=== PATIENT | female | born 1995 | race African-American/Black ===

== ENCOUNTER 2016-05-06 14:58 | Emergency (ER) | payer MEDICAID, MEDICARE ==
[~2016-05-06] VITALS: Ht 162.6 cm; Wt 49.9 kg
[2016-05-06 15:27] VITALS: BP 129/84
== END 2016-05-06 15:44 | disposition home or self-care (01) ==
LOC: ER 14:58
DX: B00.9 Herpesviral infection, unspecified (principal)

== ENCOUNTER 2025-01-12 20:54 | Inpatient (IN) | payer MEDICARE, MEDICAID ==
[~2025-01-12] VITALS: Ht 160 cm; Wt 53.9 kg
--- NOTE | 2025-01-12 21:33 | ED.PDOC ---
GI ASSESSMENT HPI Comments HPI: 29-year-old female brought in by ambulance with a chief complaint of abdominal pain. EMS report on the patient having had one glass of wine at 3:00 p.m. earlier today. PATIENT BEGAN TO DEVELOP EPIGASTRIC ABDOMINAL PAIN . It does also have nausea and vomiting. Patient notes on the pain being similar to her previous episodes of pancreatitis. Patient had some associated nausea and vomiting nonbilious nonbloody. Pain is constant. No alleviating or precipitating factors. Denies any other symptoms at this time. Denies chills, fever, /D, SOB, CP. No other associated symptoms, modifiers, recent injuries or sick contacts present at this time. Denies Vitals on scene Respiratory rate: 17 SpO2: 90% room air Heart rate: 94 Blood pressure: 181/114 Past Medical History: Pancreatitis, herpes simplex type 1 Past Surgical History: Denies any Social History: Denies any HPI: Poor Historian. RODRIGUEZ; PANCREATITIS EPIGASTRIC PAIN, NAUSEA AND VOMITING. RECEIVED fentanyl IM AND ZOFRAN P.O. IN ROUTE. SYMPTOMS ARE RECURRENT. Past Medical History: Past Surgical History: REVIEW OF SYSTEMS: CONSTITUTIONAL: Denies acute: fever, diaphoresis, chills, generalized weakness. HEAD: Denies acute: headache, photophobia Eyes: Denies acute: Double vision, vision loss, eye pain, eye discharge. EARS: Denies acute: tinnitus, hearing loss, ear discharge, ear pain, THROAT: Denies acute: sore throat, swelling, difficulty swallowing , pain with swallowing, change in voice. NECK: Denies acute: neck pain, neck swelling, stiff neck. HEART: Denies acute : chest pain, palpitations, LUNGS: Denies acute: SOB, wheezing, cough, hemoptysis ABDOMEN: Denies acute: diarrhea, melena , hematemesis, hematochezia SKIN: Denies acute: rash, redness, lesions, itchiness. EXTREMITIES: Denies acute: calf pain, numbness, tingling, weakness, denies pain in extremity. Denies acute: Low back pain. Neuro: Denies acute: focal neurological deficit, motor or sensory focal neurological deficit, tremors, seizure like activity, confusion, dizziness, change in mental status, loss of bowel or bladder function, cauda equina like symptoms. : Denies acute: dysuria, hematuria, flank pain, increase in urinary frequency. PSYCH: Denies acute: hallucination, suicidal ideation, homicidal ideation. FEMALE: Denies acute: abnormal vaginal bleeding, foul odor, unusual discharge. PHYSICAL EXAM: General: ----moderate----acute distress, awake and alert. Head: normocephalic, atraumatic. No raccoon's eyes, no posadas sign. Neck: supple, trachea is midline, no swelling. Throat: Normal phonation. Eyes:, no erythema, no purulent discharge, no proptosis, no icterus. Heart: regular rate, regular rhythm, no significant murmur appreciated. Lungs: no apparent respiratory distress, Able to speak in full sentences. No wheezing, no rhonchi, no crackles. No stridors Clear to auscultation bilaterally. Abdomen: Epigastric tender to palpation, non distended, soft, no guarding, no rebound, + bowel sounds. Neuro: Awake, Alert, oriented to name, self, situation, follows commands GCS=15. Speech is normal. Skin: no petechia, no purpura, no cyanosis, non-pale, not jaundice. Lower extremities: --no - Pitting edema no deformity, no focal swelling, no calf TTP. Makes eye contact. moves all four extremities. Face: no apparent facial droop. ED COURSE: DISCLAIMER: This medical document was created using an electronic medical record system with voice recognition software and computerized dictation system. Although this document has been carefully reviewed, there might still be some phonetic and typographical errors. Occasional wrong-word or "sound-alike" substitutions may have occurred due to the inherent limitations of voice recognition software. These areas are purely typographical due to imperfections of the software programs and do not reflect any compromise in the patient's medical care. Please read the chart carefully and recognize, using context, where these substitutions have occurred. Time Seen by MD: 21:00 Primary Care Provider: NONE Reviewed Notes: Nurses Notes, Medications, Allergies Allergies: Coded Allergies: Tramadol (Verified Allergy, Unknown, 01/12/25) Information Source: Patient Mode of Arrival: Ambulatory Timing: Hours Duration: Since onset, Hours Was a procedure done? Was a procedure done?: No GI differential Dx Differential Diagnosis: Other (DDX include Diverticulitis, colitis, gastroenteritis, acute abdomen, SBO, enteritis, constipation, volvulus, appendicitis, Gallbladder disease, choledocolithiasis, ascending cholangitis, pancreatitis, intraAbdominal mass/neoplasm, hepatitis, UTI, pylonephritis, kidney stone, aneurysm, dissection, Inflammatory bowel disease, gastroparesis, ischemic bowel,,,,,,Food poisoning, bacterial/parasitic/viral etiology, trauma, diabetes DKA,ovarian torsion, ovarian cyst/mass, tubo-ovarian abscess, , ectopic , PID, STD.) X-Ray, Labs, Meds, VS Vital Signs Date Time Temp Pulse Resp B/P (MAP) Pulse Ox O2 Delivery O2 Flow Rate FiO2 01/13/25 03:12 98.5 88 20 153/103 (120) 100 98.5 01/13/25 01:02 98.5 92 20 156/98 (117) 96 98.5 01/12/25 21:00 98.1 72 17 177/104 99 98.1 Lab Test 01/13/25 00:09 01/12/25 23:10 01/12/25 21:21 Range/Units Urine Color Light-yellow Yellow Urine Clarity Clear Clear Urine pH 7.0 5.0-9.0 Urine Specific [place] 1.023 1.001-1.035 Urine Protein Trace H Negative Urine Ketones 1+ H Negative Urine Blood 3+ H Negative /uL Urine Nitrite Negative Negative Urine Bilirubin Negative Negative Urine Urobilinogen Normal Negative mg/dL Urine Leukocyte Esterase Negative Negative /uL Urine RBC 2 0 - 4 /hpf Urine Microscopic WBC 1 0-5 /HPF Urine Squamous Epithelial Cells Few <5 /hpf Urine Bacteria None seen None Seen /hpf Urine Mucus Few None Seen Urine Glucose Normal Normal mg/dL Urine Test Negative Negative Urine Opiates Screen Pos NEGATIVE Urine Fentanyl Screen Pos NEGATIVE Urine Barbiturates Screen Neg NEGATIVE Urine Phencyclidine Screen Neg NEGATIVE Urine Amphetamines Screen Neg NEGATIVE Urine Benzodiazepines Screen Neg NEGATIVE Urine Cocaine Screen Neg NEGATIVE Urine Cannabinoids Screen Pos NEGATIVE Lactic Acid Level 2.5 *H 2.8 *H 0.4-2.0 mmol/L White Blood Count 5.8 4.4-10.8 10^3/uL Red Blood Count 4.88 4.0-5.20 10^6/uL Hemoglobin 13.2 12.2-16.2 g/dL Hematocrit 40.3 36.0-46.0 % Mean Corpuscular Volume 82.5 80.0-100.0 fL Mean Corpuscular Hemoglobin 27.1 L 28.0-32.0 pg Mean Corpuscular Hemoglobin Concent 32.8 32.0-36.0 g/dL Red Cell Distribution Width 12.7 11.8-14.3 % Platelet Count 226 140-450 10^3/uL Mean Platelet Volume 8.3 6.9-10.8 fL Neutrophils (%) (Auto) 74.9 37.0-80.0 % Lymphocytes (%) (Auto) 21.9 10.0-50.0 % Monocytes (%) (Auto) 2.5 0.0-12.0 % Eosinophils (%) (Auto) 0.1 0.0-7.0 % Basophils (%) (Auto) 0.6 0.0-2.0 % Neutrophils # (Auto) 4.4 1.6-8.6 10 ^3/uL Lymphocytes # (Auto) 1.3 0.4-5.4 10 ^3/uL Monocytes # (Auto) 0.1 0-1.3 10 ^3/uL Eosinophils # (Auto) 0 0-0.8 10 ^3/uL Basophils # (Auto) 0 0-0.2 10 ^3/uL Nucleated Red Blood Cells 0.1 % Sodium Level 143 136-145 mmol/L Potassium Level 3.7 3.5-5.1 mmol/L Chloride Level 108 H 98-107 mmol/L Carbon Dioxide Level 24 20-31 mmol/L Anion Gap 11 5-15 Blood Urea Nitrogen 6 L 9-23 mg/dL Creatinine 0.68 0.550-1.02 mg/dL Glomerular Filtration Rate Calc 120 >90 mL/min BUN/Creatinine Ratio 8.8 L 10.0-20.0 Serum Glucose 103 74-106 mg/dL Calcium Level 8.9 8.7-10.4 mg/dL Total Bilirubin 0.3 0.2-1.0 mg/dL Aspartate Amino Transferase (AST) 18 13-40 U/L Alanine Aminotransferase (ALT) 9 7-40 U/L Alkaline Phosphatase 41 L 46-116 U/L Total Protein 7.2 5.7-8.2 g/dL Albumin 4.5 3.2-4.8 g/dL Lipase 29 12-53 U/L Current Medications Medications (Trade) Dose Ordered Sig/Mary Route Start Time Stop Time Status Last Admin Sodium Chloride 1,000 ml @ 1,000 mls/hr Q1H ONCE IV 01/12/25 21:15 01/12/25 22:14 DC 01/13/25 01:26 Ondansetron HCl (Zofran) 8 mg ONCE ONCE IV 01/12/25 21:15 01/12/25 21:16 DC 01/13/25 01:36 Sucralfate (Carafate Tab) 1 gm ONCE ONCE PO 01/12/25 21:15 01/12/25 21:16 DC 01/13/25 01:36 Pantoprazole Sodium (Protonix Tablet) 40 mg ONCE ONCE PO 01/12/25 21:15 01/12/25 21:16 DC 01/13/25 01:36 Lidocaine HCl (Xylocaine 2% Viscous) 10 ml ONCE ONCE PO 01/12/25 21:15 01/12/25 21:16 DC 01/13/25 01:37 Acetaminophen/ Hydrocodone Bitart ([place] 5/325MG Tab) 1 tab ONCE ONCE PO 01/13/25 02:45 01/13/25 02:46 DC 01/13/25 02:56 Time of 1ST Reevaluation: 21:30 Reevaluation 1ST: Unchanged Time of 2ND Reevaluation: 00:58 (Urinalysis drug screen results are still pending have not been released. None of the medicines have been given yet.) Time of 3RD Reevaluation: 03:54 (Patient is still pending CT scan of the abdomen and pelvis and reassessment after medications are given. The care of this patient was signed out to my colleague Dr. Kimble. ) Patient Education/Counseling: Diagnosis, Treatment Family Education/Counseling: No Family Present Assigned to Dr. KIMBLE Comments MDM: patient presented with the above HPI.-abdominal pain epigastric pain recurrent-----workup was initiated. patient was found with the above mentioned diagnosis. the following medications were ordered: please refer to order lists of meds and tests obtained by myself Dr. Hendrickson. Patient ED course and VS have been stabilized. Patient has been reassessed in the ED and remained in a stable condition. Escalation of care considered: Consideration of escalation to observation or admission Care of this patient was signed out to my colleague to follow up on CT scan of the abdomen and pelvis and reassessed the patient and make the appropriate disposition Dr. Kimble. SEPSIS Sepsis Screen Physician Orders [place] (01/12/25 ) Electrocardigram (01/12/25 21:14) Ct Ab Pel Wo Con-No Oral Or Iv (01/13/25 03:37) Vital Signs Date Time Temp Pulse Resp B/P (MAP) Pulse Ox O2 Delivery O2 Flow Rate FiO2 01/13/25 03:12 98.5 88 20 153/103 (120) 100 98.5 01/13/25 01:02 98.5 92 20 156/98 (117) 96 98.5 01/12/25 21:00 98.1 72 17 177/104 99 98.1 Laboratory Tests Test 01/12/25 21:21 01/12/25 23:10 Lactic Acid Level 2.8 mmol/L (0.4-2.0) *H 2.5 mmol/L (0.4-2.0) *H White Blood Count 5.8 10^3/uL (4.4-10.8) Medications Medications Dose Ordered Sig/Mary Route Start Time Stop Time Status Last Admin Dose Admin Acetaminophen/ Hydrocodone Bitart 1 tab ONCE ONCE PO 01/13/25 02:45 01/13/25 02:46 DC 01/13/25 02:56 Lidocaine HCl 10 ml ONCE ONCE PO 01/12/25 21:15 01/12/25 21:16 DC 01/13/25 01:37 Ondansetron HCl 8 mg ONCE ONCE IV 01/12/25 21:15 01/12/25 21:16 DC 01/13/25 01:36 Pantoprazole Sodium 40 mg ONCE ONCE PO 01/12/25 21:15 01/12/25 21:16 DC 01/13/25 01:36 Sodium Chloride 1,000 ml @ 1,000 mls/hr Q1H ONCE IV 01/12/25 21:15 01/12/25 22:14 DC 01/13/25 01:26 Sucralfate 1 gm ONCE ONCE PO 01/12/25 21:15 01/12/25 21:16 DC 01/13/25 01:36 Departure 1 Departure Time of Disposition: 01:02 Impression: Primary Impression: Epigastric pain Additional Impressions: Polysubstance abuse Mild fentanyl abuse Marijuana abuse Opioid abuse Disposition: 30 STILL A PATIENT Condition: Stable Discharged With: Self Critical Care Note Critical Care Time?: No I personally scribed for STEVE HENDRICKSON DO ([email or web address]) on 01/12/25 at 21:33. Electronically submitted by Darrin Mathur ([email or web address]). STEVE HENDRICKSON DO Jan 12, 2025 21:33
[2025-01-12 21:47] LABS: Hematocrit 40.3 % (36.0-46.0); Hemoglobin 13.2 g/dL (12.2-16.2); Mean Corpuscular Hemoglobin 27.1 pg (28.0-32.0); Mean Corpuscular Volume 82.5 fL (80.0-100.0); Nucleated Red Blood Cells % 0.1 %
[2025-01-12 22:01] LABS: Albumin 4.5 g/dL (3.2-4.8); Anion Gap 11 (5-15); BUN/Creatinine Ratio 8.8 (10.0-20.0); Bilirubin, Total 0.3 mg/dL (0.2-1.0); Calcium 8.9 mg/dL (8.7-10.4); Carbon Dioxide 24 mmol/L (20-31); Glucose 103 mg/dL (74-106); Lipase 29 U/L (12-53); Potassium 3.7 mmol/L (3.5-5.1); Sodium 143 mmol/L (136-145); Total Protein 7.2 g/dL (5.7-8.2)
[2025-01-12 22:14] LABS: Alanine Aminotransferase 9 U/L (7-40); Alkaline Phosphatase 41 U/L (46-116); Blood Urea Nitrogen 6 mg/dL (9-23); Chloride 108 mmol/L (98-107)
[2025-01-12 22:26] LABS: Lactic Acid w/Reflex 2.8 mmol/L (0.4-2.0)
[2025-01-13 00:37] LABS: Urine Protein, UAD TRACE (Negative)
[2025-01-13] MEDS: SODIUM CHLORIDE 0.9% 1,000 ML IV ONE (01:26)
[2025-01-13] MEDS: ONDANSETRON HCL 4 MG/2 ML VIAL IV ONE (01:36)
[2025-01-13] MEDS: SUCRALFATE 1 GM TAB PO ONE (01:36)
[2025-01-13] MEDS: PANTOPRAZOLE 40 MG TAB PO ONE (01:36)
[2025-01-13] MEDS: LIDOCAINE VISCOUS 2% 15ML UD PO ONE (01:37)
[2025-01-13 02:30] LABS: Amphetamine Screen, Urine Neg (NEGATIVE); Barbiturate Scree,Urine Neg (NEGATIVE); Benzodiazephine Screen, Urine Neg (NEGATIVE); Cannabinoid Screen, Urine Pos (NEGATIVE); Cocaine Screen, Urine Neg (NEGATIVE); Opiate Scree,Urine Pos (NEGATIVE); Phencyclidine Screen, Urine Neg (NEGATIVE)
[2025-01-13] MEDS: HYDROcodone-ACET 5/325MG TAB PO ONE ×2 (02:56→10:15)
--- NOTE | 2025-01-13 05:18 | DVH ---
Exam: CT CT AB PEL WO CON-NO ORAL OR IV History: epig pain Comparison Study: None Technique: Multidetector spiral CT of the abdomen was performed from lung bases to pubic symphysis. Imaging was performed without IV contrast. Axial, coronal and sagittal multiplanar reformats were obtained from the axial data set by the technologist. Radiation Dose : 1. Abdomen/Pelvis: CTDIvol 5.07 mGy, DLP 274.92 mGy*cm. Findings: Evaluation of solid organs is limited due to lack of intravenous contrast use. Lung Bases: No acute or significant lung base finding. Normal heart size. No pleural or pericardial effusion. Liver: The liver is normal in size. No focal lesions. Gallbladder and Biliary Tree: Unremarkable Spleen: Unremarkable Pancreas: The pancreas is grossly normal in appearance. Adrenal Glands: Unremarkable Kidneys: Kidneys are grossly normal without calculi or hydronephrosis. Bladder: Grossly unremarkable for degree of distention. Bowel: The stomach is grossly normal in appearance. Small bowel and colon are normal in caliber and distribution. Normal appendix is visualized in the right lower quadrant without findings of appendicitis. Ascites: Absent Lymphadenopathy: No mesenteric, retroperitoneal or periportal lymphadenopathy. Abdominal Wall and Mesentery: Unremarkable. Vasculature: The visualized abdominal aorta is normal in size and caliber. Evaluation of abdominal and pelvic vessels is limited due to lack of intravenous contrast. Pelvic Organs: Unremarkable Musculoskeletal: No aggressive focal bony lesions, acute fractures or dislocation. IMPRESSION: No acute abdominal or pelvic findings. Radiation optimization: All CT scans at this facility use at least one of these dose optimization techniques: automated exposure control mA and/or kV adjustment per patient size (includes targeted exams where dose is matched to clinical indication) or iterative reconstruction.
[2025-01-13] MEDS: KETOROLAC TROMETH 30 MG/ML 1ML VIAL IM ONE (07:28)
[2025-01-13] MEDS ORDERED: ACETAMINOPHEN 325 MG TAB PO PRN (09:15)
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
--- NOTE | 2025-01-13 10:03 | DVH ---
EXAM: XY CHEST XRAY 1 VIEW Indication: pain Technique: Single frontal view of the chest was obtained Comparison: None FINDINGS: Lines and Tubes: None Lungs: No focal consolidation. Pleura: No effusion. No pneumothorax. Cardiomediastinal contours: Unremarkable Bones: No acute osseous abnormality. IMPRESSION: No acute cardiopulmonary disease.
[2025-01-13 12:40] VITALS: BP 126/82; PULSE 68; RESP 16; TEMP 99.1; O2SAT 97
[2025-01-13 14:22] VITALS: BP 136/87; PULSE 74
[2025-01-13] MEDS: HYDROcodone-ACET 5/325MG TAB PO PRN (14:25)
[2025-01-13 16:44] VITALS: BP 135/84; PULSE 77; RESP 16; TEMP 98.7; O2SAT 98
[2025-01-13 20:00] VITALS: PULSE 78; RESP 16; O2SAT 99
[2025-01-13 21:00] VITALS: BP 141/100; PULSE 78; RESP 16; TEMP 97.7; O2SAT 99
[2025-01-13] MEDS: ONDANSETRON HCL 4 MG/2 ML VIAL IV PRN (21:33)
[2025-01-13] MEDS: MORPHINE SULFATE INJ 2 MG/ml SYRG IV PRN (21:34)
[2025-01-14 01:00] VITALS: BP_SYST 123; BP_SYST 136; BP_DIAS 123; BP_DIAS 97; PULSE 67; PULSE 69; RESP 17; TEMP 97.8; O2SAT 100
[2025-01-14 05:00] VITALS: BP 148/104; PULSE 69; RESP 16; TEMP 98.1; O2SAT 100
[2025-01-14 06:53] LABS: Hematocrit 39.5 % (36.0-46.0); Hemoglobin 13.2 g/dL (12.2-16.2); Mean Corpuscular Hemoglobin 27.3 pg (28.0-32.0); Mean Corpuscular Volume 81.8 fL (80.0-100.0); Nucleated Red Blood Cells % 0.3 %
[2025-01-14 07:11] LABS: Albumin 3.7 g/dL (3.2-4.8); Anion Gap 11 (5-15); BUN/Creatinine Ratio 12.5 (10.0-20.0); Carbon Dioxide 23 mmol/L (20-31); Glucose 83 mg/dL (74-106); Sodium 141 mmol/L (136-145); Total Protein 6.4 g/dL (5.7-8.2)
[2025-01-14 07:12] LABS: Alanine Aminotransferase < 9 U/L (7-40); Alkaline Phosphatase 38 U/L (46-116); Bilirubin, Total 0.5 mg/dL (0.2-1.0); Blood Urea Nitrogen 9 mg/dL (9-23); Calcium 8.4 mg/dL (8.7-10.4); Chloride 107 mmol/L (98-107); Potassium 3.4 mmol/L (3.5-5.1)
[2025-01-14 08:00] VITALS: PULSE 68; RESP 16; O2SAT 98
[2025-01-14 09:00] VITALS: BP 133/99; PULSE 68; RESP 16; TEMP 98.3; O2SAT 98
[2025-01-14] MEDS: PANTOPRAZOLE 40 MG/10 ML VIAL INJ IV SCH (09:58)
[2025-01-14 13:00] VITALS: BP 151/92; PULSE 57; RESP 20; TEMP 97.8; O2SAT 100
[2025-01-14 13:57] VITALS: TEMP 36.6
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
== END 2025-01-14 14:41 | disposition home or self-care (01) | DRG 392 ==
LOC: EDBD 20:54 → ER 20:54 → OVERFLOW 01-13 09:06 → WEST WING 01-13 19:10
PROVIDERS: ADMIT Hospitalist; ATTEND Hospitalist
DX: K29.70 Gastritis, unspecified, without bleeding (principal); F11.10 Opioid abuse, uncomplicated; F12.10 Cannabis abuse, uncomplicated; Z83.3 Family history of diabetes mellitus; Z82.49 Family history of ischemic heart disease and other diseases of the circulatory system; Z79.899 Other long term (current) drug therapy
CPT/HCPCS: 36415; 71045; 74176; 80053; 80307; 81001; 81025; 83605; 83690; 85025; 86141; 87040; 87086; 96361; 96374; G0378; J1885; J2405; J2470